=== PATIENT | male | born 1980 | race Two or more races ===

== ENCOUNTER 2023-09-05 13:18 | Inpatient (IN) | payer OTHER ==
[~2023-09-05] VITALS: Ht 177.8 cm; Wt 75.1 kg
[2023-09-05 14:44] LABS: Basophils # (auto) 0 10 ^3/uL (0-0.2); Basophils % (auto) 0.3 % (0.0-2.0); Eosinophils # (auto) 0 10 ^3/uL (0-0.8); Eosinophils % (auto) 0.1 % (0.0-7.0); Hematocrit 47.3 % (41.0-53.0); Hemoglobin 15.8 g/dL (13.5-17.5); Lymphocytes # (auto) 0.6 10 ^3/uL (0.4-5.4); Lymphocytes % (auto) 5.3 % (10.0-50.0); Mean Corpuscular Hemoglobin 29.8 pg (28.0-32.0); Mean Corpuscular Hgb Conc. 33.4 g/dL (32.0-36.0); Mean Corpuscular Volume 89.3 fL (80.0-100.0); Monocytes # (auto) 0.4 10 ^3/uL (0-1.3); Monocytes % (auto) 3.8 % (0.0-12.0); Neutrophils # (auto) 10.3 10 ^3/uL (1.6-8.6); Neutrophils % (auto) 90.5 % (37.0-80.0); Nucleated Red Blood Cells % 0.1 %; Red Cell Distribution Width 14.2 % (11.8-14.3); White Blood Cell 11.4 10^3/uL (4.4-10.8)
[2023-09-05 14:51] LABS: Chloride 107 mmol/L (98-107); Sodium 138 mmol/L (136-145)
[2023-09-05 14:52] LABS: Anion Gap 6 (5-15); Calcium 10.4 mg/dL (8.7-10.4); Carbon Dioxide 25 mmol/L (20-30)
[2023-09-05 14:57] LABS: BUN/Creatinine Ratio 11.5 (10.0-20.0); Blood Urea Nitrogen 15 mg/dL (9-23); Glucose 111 mg/dL (74-106)
[2023-09-05 15:41] LABS: Urine Bacteria None Seen /hpf (None Seen)
[2023-09-05] MEDS: KETOROLAC TROMETH 30 MG/ML 1ML VIAL IV ONE (15:56)
[2023-09-05 15:57] VITALS: O2SAT 100
[2023-09-05] MEDS: SODIUM CHLORIDE 0.9% 1,000 ML IVB ONE (15:57)
[2023-09-05 16:30] LABS: Urine Blood 3+ /uL (Negative); Urine Clarity Turbid (Clear); Urine Color Colorless (Yellow); Urine Mucus FEW (None Seen); Urine Protein, UAD TRACE (Negative); Urine Specific Gravity 1.018 (1.001-1.035); Urine Urobilinogen Normal (Negative); Urine WBC 6 /hpf (0 - 3)
[2023-09-05] MEDS: SOD CHL 0.45% 1,000 ML IV ONE (20:49)
[2023-09-05] MEDS: ONDANSETRON HCL 4 MG/2 ML VIAL IV PRN (23:26)
[2023-09-05] MEDS: MORPHINE SULFATE 4 MG/ML SYR/VIAL IV PRN (23:26)
[2023-09-06] VITALS (8 sets, daily range): BP systolic 105–132; BP diastolic 65–85; PULSE 70–92; RESP 16–18; TEMP 97.6–98.7; O2SAT 96–100
[2023-09-06] MEDS: ENOXAPARIN SOD 40 MG/0.4 ML SYRINGE SC SCH (08:51)
[2023-09-06] MEDS: TAMSULOSIN HYDROCHLORIDE 0.4 MG CAP PO SCH (08:51)
[2023-09-06] MEDS: MANNITOL FTV 25% 12.5 GM/50 ML 50 ML IV ONE (14:15)
[2023-09-06] MEDS: SOD CHL 0.45% 1,000 ML IV SCH (14:29)
[2023-09-06] MEDS: PIPERACILLIN-TAZOB 3.375GM 100 ML IV SCH (14:29)
[2023-09-07] VITALS (8 sets, daily range): BP systolic 116–143; BP diastolic 72–86; PULSE 79–100; RESP 16–18; TEMP 97.5–98.3; O2SAT 97–100
[2023-09-07 06:42] LABS: Chloride 109 mmol/L (98-107); Potassium 4.2 mmol/L (3.5-5.1); Sodium 140 mmol/L (136-145)
[2023-09-07 06:43] LABS: Anion Gap 8 (5-15); Carbon Dioxide 23 mmol/L (20-30)
[2023-09-07 06:44] LABS: Calcium 8.8 mg/dL (8.5-10.1)
[2023-09-07 06:48] LABS: BUN/Creatinine Ratio 9.6 (10.0-20.0); Blood Urea Nitrogen 13 mg/dL (9-23); Glucose 105 mg/dL (74-106)
[2023-09-07] MEDS: HYDROcodone-ACET 10/325MG TAB PO PRN (15:20)
[2023-09-07] MEDS: MANNITOL FTV 25% 12.5 GM/50 ML 50 ML IV ONE (17:40)
[2023-09-07] MEDS: DOCUSATE SOD 100 MG CAP PO SCH (21:36)
[2023-09-08] VITALS (8 sets, daily range): BP systolic 108–144; BP diastolic 49–82; PULSE 63–93; RESP 14–18; TEMP 97.1–98.1; O2SAT 96–100
[2023-09-09] VITALS (7 sets, daily range): BP systolic 110–126; BP diastolic 73–88; PULSE 72–92; RESP 14–18; TEMP 97.1–98.1; O2SAT 97–99
[2023-09-10] VITALS (8 sets, daily range): BP systolic 116–128; BP diastolic 68–84; PULSE 63–104; RESP 1–18; TEMP 97.4–98.6; O2SAT 65–100
[2023-09-10 02:00] LABS: Urine Bacteria None Seen /hpf (None Seen)
[2023-09-10 02:17] LABS: Urine Blood 2+ /uL (Negative); Urine Clarity Clear (Clear); Urine Color Light-Yellow (Yellow); Urine Protein, UAD Negative (Negative); Urine Specific Gravity 1.018 (1.001-1.035); Urine Urobilinogen Normal (Negative); Urine WBC 1 /hpf (0 - 3)
[2023-09-10 06:59] LABS: Basophils # (auto) 0 10 ^3/uL (0-0.2); Basophils % (auto) 0.9 % (0.0-2.0); Eosinophils # (auto) 0.2 10 ^3/uL (0-0.8); Eosinophils % (auto) 5.1 % (0.0-7.0); Hematocrit 44.1 % (41.0-53.0); Hemoglobin 14.6 g/dL (13.5-17.5); Lymphocytes # (auto) 1.2 10 ^3/uL (0.4-5.4); Mean Corpuscular Hemoglobin 29.7 pg (28.0-32.0); Mean Corpuscular Hgb Conc. 33.2 g/dL (32.0-36.0); Mean Corpuscular Volume 89.6 fL (80.0-100.0); Monocytes # (auto) 0.4 10 ^3/uL (0-1.3); Monocytes % (auto) 10.9 % (0.0-12.0); Neutrophils # (auto) 1.6 10 ^3/uL (1.6-8.6); Neutrophils % (auto) 48.1 % (37.0-80.0); Red Blood Cells 4.92 10^6/uL (4.5-5.90); Red Cell Distribution Width 14.6 % (11.8-14.3); White Blood Cell 3.4 10^3/uL (4.4-10.8)
[2023-09-10 07:21] LABS: INR 1.06 (0.9-1.15); Partial Thromboplastin Time 29.4 SEC (24.5-34.5); Prothrombin Time 11.1 sec (9.3-11.8)
[2023-09-10 19:40] LABS: Chloride 105 mmol/L (98-107); Potassium 3.7 mmol/L (3.5-5.1); Sodium 137 mmol/L (136-145)
[2023-09-10 19:41] LABS: Anion Gap 8 (5-15); Calcium 9.6 mg/dL (8.5-10.1); Carbon Dioxide 24 mmol/L (20-30)
[2023-09-10 19:46] LABS: BUN/Creatinine Ratio 9.3 (10.0-20.0); Blood Urea Nitrogen 11 mg/dL (9-23); Glucose 82 mg/dL (74-106)
[2023-09-11] VITALS (7 sets, daily range): BP systolic 105–128; BP diastolic 61–84; PULSE 69–104; RESP 17–18; TEMP 97.7–98.6; O2SAT 95–99
== END 2023-09-11 21:10 | DRG 694 ==
LOC: EEVIPCON 13:18 → ER 13:18 → OVERFLOW 18:13 → EAST 09-06 01:24
PROVIDERS: ADMIT Internal Medicine; ATTEND Internal Medicine
DX: N13.2 Hydronephrosis with renal and ureteral calculous obstruction (principal); K40.90 Unilateral inguinal hernia, without obstruction or gangrene, not specified as recurrent; Z87.442 Personal history of urinary calculi; Z82.49 Family history of ischemic heart disease and other diseases of the circulatory system; Z63.4 Disappearance and death of family member
CPT/HCPCS: 36415; 74018; 74176; 76775; 80048; 81001; 82360; 85025; 85610; 85730; 86850; 86900; 86901; 87081; 87086; 96361; 96374; G0378; J1885; J2405; J2543